=== PATIENT | female | born 1940 | race African-American/Black ===

== ENCOUNTER 2017-01-26 15:48 | Emergency (ER) | payer OTHER, MEDICARE ==
[~2017-01-26] VITALS: Ht 147.3 cm; Wt 73.0 kg
[~2017-01-26 15:48] MED LIST: ACCUPRIL5 MG ORAL; ASPIRIN325 MG ORAL; COREG3.125 MG ORAL; HYDROCODON-ACE1 EAC8 ORAL; LEVEMIR FL100 UNIT/1 SUBQ; PENTOXIFYLLINE400 MG ORAL; PRECOSE50 MG ORAL; VITAMIN D250000 UNI1 ORAL; VYTORIN 10-201 EACH ORAL; XANAX0.5 MG ORAL
[2017-01-26] MEDS ORDERED: MYRBETRIQ50 MG PO (15:54)
[2017-01-26] MEDS ORDERED: VENTOLIN HFA18 GM INH (15:54)
[2017-01-26] MEDS ORDERED: LOSARTAN POTASS50 MG ORAL (15:58)
[2017-01-26] MEDS ORDERED: ISOSORBIDE MONO60 M1 PO (15:58)
[2017-01-26] MEDS ORDERED: LIPITOR80 MG ORAL (15:59)
[2017-01-26] MEDS ORDERED: COREG12.5 MG ORAL (16:00)
[2017-01-26] MEDS ORDERED: FUROSEMIDE20 M1 ORAL (16:01)
[2017-01-26] MEDS ORDERED: LASIX20 MG IV (16:01)
[2017-01-26] MEDS ORDERED: FLUOCINONIDE-E15 G1 TP (16:02)
[2017-01-26 16:06] VITALS: BP 109/47
--- NOTE | 2017-01-26 16:09 | Emergency Room Report ---
History of Present Illness General Chief Complaint: Dyspnea/Respdistress Source: Patient, EMS Present Illness HPI 76-year-old female coming from home brought by EMS with history of COPD, CAD status post CABG, ICD/pacemaker, diabetes, CHF, p/w progressive SOB for a few weeks SOB occurs both at rest and on exertion however patient states that it is worse with exertion. Denies cough. Denies chest pain. Or palpitations Patient is on 24 hour home O2, on 5 L, states that her normal saturation is in the 80s. The patient states that she has been using her nebulizer treatment about 3 times a day. Denies any recent steroid use. Denies any recent hospitalizations in the last 3 months. Patient states that she is chronically short of breath however it has been progressively worse in the last 3 weeks Patient also noted to have lower extremity edema, states it is not worse than normal Denies fever, chills. Denies sick contacts or recent travel. Patient also stating that for the last 3-4 days she has been urinating a lot and she feels like she has a UTI. Denies any dysuria or hematuria Allergies: Coded Allergies: CODEINE (Verified Allergy, Severe, Shortness of Breath, 01/26/17) RE-ENTERED CODED ALLERGY CEFUROXIME (Verified Allergy, Intermediate, Itching, redness, swelling, ) RE-ENTERED ACETAMINOPHEN (Unverified Allergy, Unknown, 12/04/15) METFORMIN (Verified Allergy, Unknown, 12/04/15) Patient History Past Medical History: see triage record Past Surgical History: none Pertinent Family History: none Last Menstrual Period: na Reviewed Nursing Documentation: PMH: Agreed, PSxH: Agreed Nursing Documentation-PM Past Medical History: No History, Except For Hx Cardiac Problems: Yes Hx Hypertension: Yes Hx Pacemaker: Yes Hx Asthma: Yes Hx COPD: Yes Hx Diabetes: Yes Hx Cancer: No Hx Gastrointestinal Problems: No Hx Neurological Problems: No Review of Systems All Other Systems: negative except mentioned in HPI Physical Exam Vital Signs Date Time Temp Pulse Resp B/P (MAP) Pulse Ox O2 Delivery O2 Flow Rate FiO2 01/26/17 15:53 97.0 91 28 115/52 90 Nasal Cannula 5.0 Sp02 EP Interpretation: abnormal - Satting 80 on room air, on 5 L nasal cannula satting 88-92 General Appearance: mild distress, other - Appears to be mildly short of breath however patient is speaking complete sentences, not in pain Head: normocephalic, atraumatic Eyes: bilateral eye normal inspection, bilateral eye PERRL, bilateral eye EOMI ENT: normal ENT inspection, normal pharynx, normal voice, moist mucus membranes Neck: normal inspection, full range of motion, supple Respiratory: other - No wheezing no crackles noted, mild decreased breath sounds left lower lung base Cardiovascular #1: normal inspection, regular rate, rhythm, normal capillary refill, edema Cardiovascular #2: 2+ radial (R), 2+ radial (L) Gastrointestinal: other - Mild suprapubic tenderness, very soft Musculoskeletal: normal inspection, back normal, normal range of motion, non- tender Neurologic: normal inspection, alert, oriented x3, responsive, motor strength/ tone normal, sensory intact, normal gait, speech normal Psychiatric: normal inspection, judgement/insight normal, memory normal Skin: normal inspection, normal color, no rash, warm/dry, well hydrated, normal turgor Procedures Critical Care Time Critical Care Time 40 minutes of CC time 76-year-old female with CHF, COPD, presenting with progressive shortness of breath VS: Hypoxic, tachypneic Airway patent. PLAN: IV access, labs, chest x-ray EKG, diuresis Anticipate admission to Tele vs. [facility] CC time also includes review of labs, review of EMR, discussion with family and paperwork from SNF, d/w hospitalist CC could include dosing of pressors, additional Abx CC time does not include procedures Medical Decision Making Diagnostic Impression: Primary Impression: CHF exacerbation Additional Impressions: Respiratory distress Hypoxia COPD (chronic obstructive pulmonary disease) Hyperkalemia UTI (urinary tract infection) ER Course 76-year-old female with pmhx of HTN, DM, CAD, CHF, COPD p/w SOB for a few weeks DDX: CHF exacerbation, ACS, pneumonia, asthma/copd exacerbation, UTI Plan: IV access, gaggerman, O2 nasal cannula obtain basic labs including blood gas, troponin, BNP ER course: Patient has remained on the monitor. lasix 40 mg given continues to be on NC, no bipap requires at this time hyperkalemia on labs - cocktail given (except bicarb) Patient has been on NC satting ~88-90s. states her normal is in the high 70s awake and alert, no tlethargic, speaking in complete sentences L external jugular peripheral IV placed last bgm 74, given 1 amp dextrose and pt drank orange juice stable for xfer Disposition: Patient requires inpatient admission for close monitoring of respiratory status/ continuation of BIPAP, further workup including serial troponin and EKGs, possible additional diuresis and monitoring of electrolytes. Pt will be xferred to outside hospital due to insurance purposes. Xfer to [place] [facility] [id number] accepted pt for xfer Please note that this Emergency Department Report was dictated using [employer] professional technology software, occasionally this can lead to erroneous entry secondary to interpretation by the dictation equipment. EKG Diagnostic Results EP Interpretation: Yes Rate: normal Rhythm: Ventricular paced rhythm ST Segments: Ventricular paced rhythm ASA given to patient: No Rhythm Strip EP Interpretation: Yes Rate: 93 Rhythm: Ventricular paced Chest X-ray CXR: Ordered: Yes 1 view Indication: Shortness of breath EP interpretation: Yes Interpretation: cardiomegaly, b/l pulm infiltrates, chf, ICD on L chest Impression: CHF Electronically signed by David Gooden MD Laboratory Tests Test 01/26/17 16:40 01/26/17 17:05 01/26/17 18:30 White Blood Count 9.5 K/UL (4.8-10.8) Red Blood Count 4.96 M/UL (4.20-5.40) Hemoglobin 14.1 G/DL (12.0-16.0) Hematocrit 47.4 % (37.0-47.0) H Mean Corpuscular Volume 96 FL (80-99) Mean Corpuscular Hemoglobin 28.4 PG (27.0-31.0) Mean Corpuscular Hemoglobin Concent 29.7 G/DL (32.0-36.0) L Red Cell Distribution Width 15.0 % (11.6-14.8) H Platelet Count 152 K/UL (150-450) Mean Platelet Volume 9.1 FL (6.5-10.1) Neutrophils (%) (Auto) 53.7 % (45.0-75.0) Lymphocytes (%) (Auto) 36.8 % (20.0-45.0) Monocytes (%) (Auto) 6.4 % (1.0-10.0) Eosinophils (%) (Auto) 1.4 % (0.0-3.0) Basophils (%) (Auto) 1.7 % (0.0-2.0) Sodium Level 142 MMOL/L (136-145) Potassium Level 5.7 MMOL/L (3.5-5.1) H Chloride Level 110 MMOL/L (98-107) H Carbon Dioxide Level 20 MMOL/L (21-32) L Anion Gap 12 mmol/L (5-15) Blood Urea Nitrogen 24 mg/dL (7-18) H Creatinine 1.4 MG/DL (0.55-1.30) H Estimate Glomerular Filtration Rate mL/min (>60) Glucose Level 118 MG/DL (74-106) H Lactic Acid Level 1.60 mmol/L (0.66-2.22) Calcium Level 11.2 MG/DL (8.5-10.1) H Total Bilirubin 0.9 MG/DL (0.2-1.0) Aspartate Amino Transferase (AST) 39 U/L (15-37) H Alanine Aminotransferase (ALT) 28 U/L (12-78) Alkaline Phosphatase 88 U/L (46-116) Total Creatine Kinase 106 U/L (26-308) Creatine Kinase MB 0.8 NG/ML (0.0-3.6) Creatine Kinase MB Relative Index 0.7 Troponin I 0.054 ng/mL (0.000-0.056) Pro-B-Type Natriuretic Peptide 3920 pg/mL (0-125) H Total Protein 7.5 G/DL (6.4-8.2) Albumin 3.2 G/DL (3.4-5.0) L Globulin 4.3 g/dL Albumin/Globulin Ratio 0.7 (1.0-2.7) L Urine Color Yellow Urine Appearance Clear Urine pH 5 (4.5-8.0) Urine Specific [place] 1.015 (1.005-1.035) Urine Protein 2+ (NEGATIVE) H Urine Glucose (UA) Negative (NEGATIVE) Urine Ketones Negative (NEGATIVE) Urine Occult Blood 1+ (NEGATIVE) H Urine Nitrite Negative (NEGATIVE) Urine Bilirubin Negative (NEGATIVE) Urine Urobilinogen Normal MG/DL (0.0-1.0) Urine Leukocyte Esterase 3+ (NEGATIVE) H Urine RBC 2-4 /HPF (0 - 2) H Urine WBC 5-10 /HPF (0 - 2) H Urine Squamous Epithelial Cells Few /LPF (NONE/OCC) Urine Bacteria Few /HPF (NONE) Arterial Blood pH 7.477 (7.350-7.450) Arterial Blood Partial Pressure CO2 25.2 mmHg (35.0-45.0) L Arterial Blood Partial Pressure O2 49.8 mmHg (75.0-100.0) Arterial Blood HCO3 18.2 mmol/L (22.0-26.0) L Arterial Blood Oxygen Saturation 86.0 % (92.0-98.0) L Arterial Blood Base Excess -3.5 Kali Test Positive Last Vital Signs Date Time Temp Pulse Resp B/P (MAP) Pulse Ox O2 Delivery O2 Flow Rate FiO2 01/26/17 15:53 97.0 91 28 115/52 90 Nasal Cannula 5.0 Disposition: XFER [facility]-TRM HOSP Condition: Serious Referrals: NOT CHOSEN GRAHAM/,REFERRING (PCP) David Gooden M.D. Jan 26, 2017 16:09
[2017-01-26 17:19] LABS: BASOPHILS % (AUTO) 1.7 % (0.0-2.0); EOSINOPHILS % (AUTO) 1.4 % (0.0-3.0); LYMPHOCYTES % (AUTO) 36.8 % (20.0-45.0); MEAN CORPUSCULAR HEMOGLOBIN 28.4 PG (27.0-31.0); MEAN CORPUSCULAR HGB CONC 29.7 G/DL (32.0-36.0); MEAN CORPUSCULAR VOLUME 96 FL (80-99); MEAN PLATELET VOLUME 9.1 FL (6.5-10.1); MONOCYTES % (AUTO) 6.4 % (1.0-10.0); NEUTROPHILS % (AUTO) 53.7 % (45.0-75.0); PLATELET COUNT 152 K/UL (150-450); RED BLOOD COUNT 4.96 M/UL (4.20-5.40); WHITE BLOOD COUNT 9.5 K/UL (4.8-10.8)
[2017-01-26 17:42] LABS: APPEARANCE,URINE CLEAR; KETONES,URINE NEGATIVE (NEGATIVE); LEUKOCYTE ESTERASE ,URINE 3+ (NEGATIVE); NITRITE,URINE NEGATIVE (NEGATIVE); PH,URINE 5 (4.5-8.0); PROTEIN,URINE 2+ (NEGATIVE); UROBILINOGEN,URINE NORMAL MG/DL (0.0-1.0)
[2017-01-26 17:54] LABS: ALANINE AMINOTRANSFERASE 28 U/L (12-78); ALBUMIN/GLOBULIN RATIO 0.7 (1.0-2.7); ANION GAP 12 mmol/L (5-15); ASPARTATE AMINO TRANSFERASE 39 U/L (15-37); CALCIUM 11.2 MG/DL (8.5-10.1); CARBON DIOXIDE 20 MMOL/L (21-32); CHLORIDE 110 MMOL/L (98-107); CKMB 0.8 NG/ML (0.0-3.6); CREATININE 1.4 MG/DL (0.55-1.30); POTASSIUM 5.7 MMOL/L (3.5-5.1); SODIUM 142 MMOL/L (136-145); TOTAL PROTEIN 7.5 G/DL (6.4-8.2)
[2017-01-26 17:57] LABS: BACTERIA,URINE FEW /HPF; SQUAMOUS EPITHELIAL CELL,UR FEW /LPF (NONE/OCC)
[2017-01-26 18:00] VITALS: BP 155/66
[2017-01-26] MEDS ORDERED: Calcium Gluconate 1gm/10ml vial IVP ONE (18:15)
[2017-01-26] MEDS ORDERED: Sodium Bicarbonate 50ml Carp IV ONE (18:15)
[2017-01-26] MEDS ORDERED: cefTRIAXone 1 GM in NS 55 ML IV ONE (18:15)
[2017-01-26] MEDS ORDERED: HUMULIN N100 UNIT/1 SUBQ (18:34)
[2017-01-26] MEDS ORDERED: HUMULIN R100 UNIT/1 SUBQ (18:34)
[2017-01-26] MEDS ORDERED: ASPIR 8181 MG ORAL (18:34)
[2017-01-26 18:54] LABS: ABG PCO2 25.2 mmHg (35.0-45.0)
[2017-01-26 18:56] LABS: ABG BASE EXCESS -3.5
[2017-01-26 18:57] LABS: ABG ALLEN TEST POSITIVE
[2017-01-26 19:00] VITALS: BP 112/79
[2017-01-26] MEDS ORDERED: FAMOTIDINE40 MG ORAL (19:06)
[2017-01-26] MEDS ORDERED: TRAZODONE HCL50 MG ORAL (19:06)
[2017-01-26 20:10] VITALS: BP 112/79
--- NOTE | 2017-01-27 10:12 | Diagnostic Imaging Report ---
Indication: PAIN chest pain, shortness of breath Technique: One view of the chest Comparison: 12/04/2015 Findings: The heart is enlarged. There is mild interstitial congestion. The pleural spaces are probably clear. Left chest biventricular AICD, median sternotomy sutures again demonstrated. Impression: Cardiomegaly with mild interstitial congestion. Other stable findings as described
--- NOTE | 2017-01-28 16:57 | Cardiology Report ---
APPROVED REPORT EKG Measurement Heart [id number] [id number] Abnormal ECG Atrioventricular Sequential Pacemaker
== END 2017-01-26 20:10 | disposition short-term general hospital (02) ==
LOC: EDBD 15:48 → EMR 16:00
DX: I50.9 Heart failure, unspecified (principal); R06.03 Acute respiratory distress; R09.02 Hypoxemia; J44.9 Chronic obstructive pulmonary disease, unspecified; E87.5 Hyperkalemia; N39.0 Urinary tract infection, site not specified; E11.9 Type 2 diabetes mellitus without complications; I11.0 Hypertensive heart disease with heart failure; I25.810 Atherosclerosis of coronary artery bypass graft(s) without angina pectoris; Z95.810 Presence of automatic (implantable) cardiac defibrillator; Z88.6 Allergy status to analgesic agent; Z88.8 Allergy status to other drugs, medicaments and biological substances
CPT/HCPCS: 36415; 36600; 71010; 80053; 81003; 82550; 82553; 82803; 82962; 83605; 83880; 84484; 85025; 87040; 93005; 96374; 96375; 99285; J0610; J1815; J1940